=== PATIENT | male | born 1965 | race Caucasian/White ===

== ENCOUNTER 2023-04-02 08:38 | Day surgery (SDC) | payer BC ==
[~2023-04-02 08:38] MED LIST: Acetaminophen 325 MG Tab PO ONE; Bupivacaine 0.25% 10 ML SDV ONE; Dexmedetomidine 200 MCG/2 ML SDV ONE; HYDROmorphone 0.5 MG/0.5 ML Syringe IVPUSH PRN; Lactated Ringers 1,000 ML IV SCH; Midazolam 1 MG/ML 2 ML SDV ONE; Morphine 8 MG, EPINEPHrine 0.3 MG, Cefuroxime 750 MG, Ketorolac 30 MG, Sodium Chloride ... PRN; Ondansetron 4 MG/2 ML SDV IVPUSH PRN; Pregabalin 25 MG Cap PO ONE; Propofol 200 MG/20 ML SDV ONE; Sodium Chloride 0.9% 10 ML Syringe FLUSH PRN; Sodium Chloride 0.9% 10 ML Syringe FLUSH SCH; Tranexamic Acid 1,000 MG/10 ML Vial ONE; Triamcinolone Acetonide 40 MG/ML 1 ML SDV ONE; Vancomycin 1 GM SDV ONE; fentaNYL 100 MCG/2 ML SDV IVPUSH PRN; fentaNYL 100 MCG/2 ML SDV ONE; oxyCODONE ER 10 MG TAB.ER PO ONE
[2023-04-02] MEDS ORDERED: Ropivacaine 0.5% 5 MG/ML 30 ML SDV ONE (08:39)
[2023-04-02] MEDS ORDERED: EPINEPHrine 1 MG/ML SDV ONE (08:39)
[2023-04-02] MEDS ORDERED: ceFAZolin 2 GM Vial ONE (10:47)
[2023-04-02] MEDS ORDERED: Propofol 200 MG/20 ML SDV ONE ×2 (10:50→12:02)
[2023-04-02] MEDS ORDERED: Lactated Ringers 1,000 ML ONE (11:28)
[2023-04-02] MEDS ORDERED: Ondansetron 4 MG/2 ML SDV ONE (12:11)
[2023-04-02] MEDS ORDERED: Ketorolac 30 MG/ML SDV ONE (12:11)
[2023-04-02] MEDS ORDERED: oxyCODONE 5 MG Tab PO SCH (13:27)
== END 2023-04-02 15:15 | disposition home or self-care (01) ==
LOC: JD.SDS 08:38
PROVIDERS: ATTEND Orthopaedic Surgery
DX: M17.0 Bilateral primary osteoarthritis of knee (principal); M25.762 Osteophyte, left knee; M25.761 Osteophyte, right knee; N40.1 Benign prostatic hyperplasia with lower urinary tract symptoms; N13.8 Other obstructive and reflux uropathy; E78.00 Pure hypercholesterolemia, unspecified; Z79.899 Other long term (current) drug therapy; Z98.890 Other specified postprocedural states; Z87.891 Personal history of nicotine dependence; Z79.82 Long term (current) use of aspirin
CPT/HCPCS: 0055T; 20610; 27447; 64447; 73560; 97116; 97161; A9270; C1713; C1776; J0171; J0690; J0697; J1885; J2250; J2270; J2405; J2704; J2795; J3010; J3301; J3370; J3490; J7030; J7120; 01402

== ENCOUNTER 2024-04-07 07:00 | Day surgery (SDC) | payer BC ==
[~2024-04-07 07:00] MED LIST changes: -Acetaminophen 325 MG Tab PO ONE; -Bupivacaine 0.25% 10 ML SDV ONE; -Dexmedetomidine 200 MCG/2 ML SDV ONE; -HYDROmorphone 0.5 MG/0.5 ML Syringe IVPUSH PRN; -Lactated Ringers 1,000 ML IV SCH; -Morphine 8 MG, EPINEPHrine 0.3 MG, Cefuroxime 750 MG, Ketorolac 30 MG, Sodium Chloride ... PRN; -Ondansetron 4 MG/2 ML SDV IVPUSH PRN; -Pregabalin 25 MG Cap PO ONE; +Ropivacaine 0.5% 5 MG/ML 30 ML SDV ONE; -Tranexamic Acid 1,000 MG/10 ML Vial ONE; -Triamcinolone Acetonide 40 MG/ML 1 ML SDV ONE; -Vancomycin 1 GM SDV ONE; -fentaNYL 100 MCG/2 ML SDV IVPUSH PRN; -oxyCODONE ER 10 MG TAB.ER PO ONE
[2024-04-07] MEDS: Lactated Ringers 1,000 ML IV SCH (07:25)
[2024-04-07] MEDS: Acetaminophen 325 MG Tab PO ONE (07:42)
[2024-04-07] MEDS: oxyCODONE ER 10 MG TAB.ER PO ONE (07:42)
[2024-04-07] MEDS: Pregabalin 75 MG Cap PO ONE (07:43)
[2024-04-07] MEDS ORDERED: Dexamethasone 4 MG/ML 5 ML MDV ONE (08:15)
[2024-04-07] MEDS ORDERED: ceFAZolin 2 GM Vial ONE (08:15)
[2024-04-07] MEDS ORDERED: HYDROmorphone 0.5 MG/0.5 ML Syringe IVPUSH PRN (08:28)
[2024-04-07] MEDS ORDERED: fentaNYL 100 MCG/2 ML SDV IVPUSH PRN (08:28)
[2024-04-07] MEDS ORDERED: Ondansetron 4 MG/2 ML SDV IVPUSH PRN (08:28)
[2024-04-07] MEDS ORDERED: Propofol 200 MG/20 ML SDV ONE (08:44)
[2024-04-07] MEDS: Morphine 8 MG, EPINEPHrine 0.3 MG, Cefuroxime 750 MG, Ketorolac 30 MG, Sodium Chloride ... PRN (09:07)
[2024-04-07] MEDS: Vancomycin 1 GM SDV ONE (09:13)
[2024-04-07] MEDS: Tranexamic Acid 1,000 MG/10 ML Vial ONE (09:13)
[2024-04-07] MEDS ORDERED: oxyCODONE 5 MG Tab PO PRN (10:16)
== END 2024-04-07 12:20 | disposition home or self-care (01) ==
LOC: JD.SDS 07:00
PROVIDERS: ATTEND Orthopaedic Surgery
DX: M17.11 Unilateral primary osteoarthritis, right knee (principal); E78.00 Pure hypercholesterolemia, unspecified
CPT/HCPCS: 0055T; 27447; 73560; 97110; 97161; A9270; C1713; C1776; J0171; J0690; J0697; J1100; J1885; J2250; J2270; J2704; J2795; J3010; J3370; J7120; 01402; J3490